=== PATIENT | female | born 1960 | race Caucasian/White ===

== ENCOUNTER 2018-06-16 05:47 | Day surgery (SDC) | payer OTHER ==
[~2018-06-16 05:47] MED LIST: DOXYCYCLINE HY100 MG PO; TYLENOL-CODEINE1 TAB PO
[2018-06-16] MEDS ORDERED: Tylenol #3 PO (08:31)
[2018-06-16] MEDS ORDERED: DOXYCYCLINE HY100 M2 PO (08:31)
== END 2018-06-16 13:05 | disposition home or self-care (01) ==
LOC: CIR.AMB 05:47
DX: D25.0 Submucous leiomyoma of uterus (principal); N84.0 Polyp of corpus uteri